=== PATIENT | male | born 1975 | race Two or more races ===

== ENCOUNTER 2017-03-28 17:42 | Emergency (ER) | payer MEDICAID ==
[~2017-03-28] VITALS: Ht 157.5 cm; Wt 72.0 kg
[~2017-03-28 17:42] MED LIST: CALC667C4; WARF5TAB72
[2017-03-28 17:51] VITALS: Ht 157.5 cm; Wt 72.0 kg
[2017-03-28] MEDS ORDERED: ACET325T33 PO (19:35)
[2017-03-28] MEDS ORDERED: PROM5SYR2 PO (19:35)
[2017-03-28] MEDS ORDERED: BENZ100C70 PO (19:35)
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
--- NOTE | 2017-03-28 20:06 | RADRPT ---
PROCEDURE: XR Chest. CLINICAL INDICATION: Cough. TECHNIQUE: AP view of the chest was obtained. COMPARISON: None available FINDINGS: The cardiomediastinal silhouette is within normal limits. There is diffuse, extensive prominence of the interstitial markings in the bilateral lung zones. No focal consolidation is seen. No signs of p leural fluid or pneumothorax are seen. The osseous structures and soft tissues are unremarkable. IMPRESSION: 1. Diffuse extensive prominence of the interstitial markings in the bilateral lung zones, which may be related to atypical pneumonia versus bronchitis. High-resolution CT of the chest may be helpful for further evaluation. RPTAT: HGAS .Armando Wolff MD, MD Date Time Electronically viewed and signed by .Armando Wolff MD, on 03/28/2017 20:05 .S/
[2017-03-28] MEDS ORDERED: ALBU8.5H3 INH (20:12)
[2017-03-28] MEDS ORDERED: AZIT250T94 PO (20:12)
[2017-03-28 20:54] LABS: BASOPHIL # 0.1 10^3/ul (0.0-0.1); BASOPHILS % 0.5 % (0.0-2.0); EOSINOPHILS # 0.6 10^3/ul (0.0-0.5); EOSINOPHILS % 6.1 % (0.0-7.0); HEMATOCRIT 31.3 % (42.0-52.0); HEMOGLOBIN 10.2 g/dl (14.0-18.0); LYMPHOCYTES # 1.3 10^3/ul (0.8-2.9); LYMPHOCYTES % 13.4 % (15.0-51.0); MEAN CORPUSCULAR HEMOGLOBIN 32.2 pg (29.0-33.0); MEAN CORPUSCULAR HGB CONC 32.6 g/dl (32.0-37.0); MEAN CORPUSCULAR VOLUME 98.7 fl (82.0-101.0); MEAN PLATELET VOLUME 9.3 fl (7.4-10.4); MONOCYTE # 0.8 10^3/ul (0.3-0.9); MONOCYTES % 7.6 % (0.0-11.0); NEUTROPHIL # 7.2 10^3/ul (1.6-7.5); PLATELET COUNT 228 10^3/UL (140-415); RED BLOOD COUNT 3.17 10^6/ul (4.70-6.10); RED CELL DISTRIBUTION WIDTH 13.2 % (11.5-14.5)
[2017-03-28] MEDS ORDERED: ENALAPRILAT 1.25 MG INJ IV STA (21:37)
[2017-03-28 21:55] VITALS: PULSE 99; RESP 17; TEMP 98.6
[2017-03-28 22:33] VITALS: BP 169/111
== END 2017-03-28 22:34 | disposition home or self-care (01) ==
LOC: FTE 17:42
DX: I12.0 Hypertensive chronic kidney disease with stage 5 chronic kidney disease or end stage renal disease (principal); J20.9 Acute bronchitis, unspecified; N18.6 End stage renal disease; Z79.01 Long term (current) use of anticoagulants; Z99.2 Dependence on renal dialysis
CPT/HCPCS: 36415; 71010; 84484; 85025; 93005; 96374; Z7502; Z7610

== ENCOUNTER 2017-05-15 18:26 | Emergency (ER) | END 2017-05-15 22:09 | disposition left against medical advice (07) ==

== ENCOUNTER 2017-05-17 00:40 | Inpatient (IN) | END 2017-05-19 22:47 | disposition home or self-care (01) | DRG 640 ==